=== PATIENT | female | born 1975 | race Caucasian/White ===

== ENCOUNTER 2016-11-05 13:28 | Observation (INO) | payer OTHER ==
[~2016-11-05] VITALS: Ht 157.5 cm; Wt 142.9 kg
[~2016-11-05 13:28] MED LIST: ALBUTEROL 3 ML3 ML INH; ALBUTEROL0.09 MG/A1 INH; ALBUTEROL0.63 MG/3 INH/SOL; ATORVASTATIN CA10 MG PO; AUGMENTIN 875875 MG PO; AZITHROMYCIN500 MG PO; FLOVENT0.11 MG/Ac INH; HYDROCHLOROTHIA PO; MEDROL DOSEPAK1 PAC PO; METHYLDOPA PO; MOBIC15 MG PO; PREDNISONE 10MG10 MG PO; SINGULAIR10 MG PO; SYMBICORT 160/41 PUF INH; VERAPAMIL HCL360 MG PO
--- NOTE | 2016-11-05 13:35 | NUR ---
C/O DIZZINESS, LIGHT HEADEDNESS X 1 WEEK, WORSE TODAY. SAW DR. MAYFIELD X 2 THIS WEEK FOR SXS. HAD B/W AND CHEST XRAY AND BILATERL US OF LEGS. DENIES CHEST PAIN OR SOB. HAS B/W RESULTS WITH HER.
--- NOTE | 2016-11-05 14:03 | ED AMS/SEIZURE/WEAK/DIZZY ---
See Addendum History of Present Illness General Chief Complaint: Dizziness Stated Complaint: SENT IN BY MD BOWEN Source: patient Exam Limitations: no limitations Vital Signs & Intake/Output Vital Signs & Intake/Output Vital Signs Date Time Temp Pulse Resp B/P B/P Pulse O2 O2 Flow FiO2 Mean Ox Delivery Rate 11/05 2014 97.3 83 18 169/84 100 Room Air 11/05 1744 96.8 85 20 150/90 98 Room Air 11/05 1535 99 11/05 1504 Room Air Room Air 11/05 1502 98.8 79 15 139/72 99 Room Air Room Air 11/05 1334 96.8 89 18 112/79 98 Room Air Allergies Coded Allergies: NO KNOWN ALLERGIES (12/27/14) Reconcile Medications Albuterol Sulfate (Proair Hfa) 90 MCG HFA.AER.AD 2 PUF INH AD PRN ASTHMA ( Reported) Albuterol Sulfate 2.5 MG/3 ML (0.083 %) VIAL.NEB 1 Vial INH/SUZANNE Q4P PRN DYSPNEA Amlodipine Besylate 10 MG TABLET 0.5 TAB PO DAILY BP (Reported) Atorvastatin Calcium 10 MG TABLET 1 TAB PO DAILY CHOLESTEROL (Reported) Losartan/Hydrochlorothiazide (Losartan-Hctz 100-25 MG Tab) 100 MG-25 MG TABLET 1 TAB PO DAILY BP (Reported) Methyldopa 500 MG TABLET 1 TAB PO BID BP (Reported) Montelukast Sodium 10 MG TABLET 1 TAB PO QPM ASTHMA (Reported) Prednisone 20 MG TABLET 2 TAB PO D ASTHMA Verapamil HCl 360 MG CAP24H.PEL 1 CAP PO DAILY BP (Reported) Triage Note: C/O DIZZINESS, LIGHT HEADEDNESS X 1 WEEK, WORE TODAY. SAW DR. MAYFIELD X 2 THIS WEEK FOR SXS. HAD B/W AND CHEST XRAY. HAS B/W REULTS WITH HER. Triage Nurses Notes Reviewed? yes Onset: Gradual Duration: week(s): (1) Timing: recent history Injury Environment: home Severity: moderate, severe Modifying Factors: Worsens With: movement. : No Patient currently breastfeeds: No HPI: This is a 40-year-old female with history of hypertension, morbid obesity presents to the ER complaining of worsening short of breath over the last week. She states that she was sent for an outpatient chest x-ray and [facility] Ultrasound report was given verbally which was negative the patient was awaiting chest x-ray was report results. She states that it is getting harder and harder to sleep flat and when she called her doctor today they decided to send her to the ER for evaluation. Patient is on multiple blood pressure medications. She denies any diabetes. History of asthma but states this does not feel like her asthma. She has not been coughing up any sputum. No fever or chills. Denies any chest pain but did complain of some back pain. The patient also has a history of pneumonia but he states this does not feel similar to her previous episode. (NGA REGAN MD) Past History Travel History Traveled to [place] past 21 day No Medical History Any Pertinent Medical History? see below for history Neurological: NONE EENT: allergies Cardiovascular: hypertension, hyperlipidemia Respiratory: asthma Gastrointestinal: NONE Hepatic: NONE Renal: NONE Musculoskeletal: NONE Psychiatric: NONE Endocrine: NONE Blood Disorders: NONE Cancer(s): NONE Other Medical Hx: obesity History of MRSA: No History of VRE: No History of CDIFF: No Influenza Vaccine: 01/08/15 Surgical History Surgical History: cholecystectomy, , RT FOOT SX Psychosocial History Who do you live with Family Services at Home None What is your primary language Citizen [place] Tobacco Use: Never used ETOH Use: denies use Family History Comment: MOTHER WITH DVT AFTER SURGERY Hx Contributory? No (NGA REGAN MD) Review of Systems Review of Systems Constitutional: Denies: chills, fever. EENTM: Reports: no symptoms. Respiratory: Reports: cough, short of breath. Denies: sputum production. Cardiovascular: Reports: palpitations. Denies: chest pain. GI: Denies: abdominal pain. Genitourinary: Reports: no symptoms. Musculoskeletal: Reports: no symptoms. Skin: Reports: no symptoms. Neurological/Psychological: Reports: anxiety. Hematologic/Endocrine: Denies: bruising, bleeding, polyuria, polydipsia. Immunologic/Allergic: Denies: splenectomy. All Other Systems: Reviewed and Negative (NGA REGAN MD) Physical Exam Physical Exam General Appearance: well developed/nourished, alert, awake, anxious, mild distress, obese Head: atraumatic, normal appearance Eyes: Bilateral: normal appearance, PERRL, EOMI. Ears, Nose, Throat: normal pharynx, normal ENT inspection, hearing grossly normal Neck: normal inspection, supple, full range of motion Respiratory: normal breath sounds, chest non-tender, no respiratory distress Cardiovascular: regular rate/rhythm Peripheral Pulses: 2+ radial (R), 2+ radial (L) Gastrointestinal: normal bowel sounds, soft, non-tender Extremities: normal range of motion Neurologic/Psych: no motor/sensory deficits, awake, alert, oriented x 3 Skin: intact, normal color, warm/dry Core Measures ACS in differential dx? Yes ASA ordered for poss ACS? No-ACS ruled out CVA/TIA Diagnosis: No Severe Sepsis Present: No Septic Shock Present: No (DORITA MART,NGA) Progress Differential Diagnosis: pneumonia, bronchitis, asthma, pulmonary embolus, ACS, anemia Plan of Care: Orders Procedure Date/time Status Heart Healthy Diet 11/[address] in observation 11/05 215 Active ED Holding Orders 11/05 2158 Active Vital Signs 11/05 215 Active Code Status 11/05 2158 Active TROPONIN LEVEL 11/05 1800 Complete EKG 11/05 1800 Active RT ED ORDERS 11/05 1508 Active Telemetry/Mixer Operator Vacuum Pan Salt 11/05 1418 Active TROPONIN LEVEL 11/05 1408 Complete HUMAN BETA HCG SCREEN 11/05 1408 Complete D-DIMER 11/05 1408 Complete COMPREHENSIVE METABOLIC PANEL 11/05 1408 Complete CBC WITHOUT DIFFERENTIAL 11/05 1408 Complete EKG 11/05 1349 Active Laboratory Tests 11/05/16 1747: Troponin I < 0.01 11/05/16 1415: Anion Gap 9, Estimated GFR > 60, BUN/Creatinine Ratio 14.3, Glucose 101 H, Calcium 9.6, Total Bilirubin 0.4, AST 23, ALT 37, Alkaline Phosphatase 56, Troponin I < 0.01, Total Protein 7.0, Albumin 4.0, Globulin 3.0, Albumin/ Globulin Ratio 1.3, Total Beta HCG NEGATIVE, D-Dimer High Sensitivty < 200, CBC w Diff NO MAN DIFF REQ, RBC 4.52, MCV 74.3 L, MCH 24.5 L, RDW 15.6 H, MPV 8.3 , Gran % 73.5, Lymphocytes % 16.9 L, Monocytes % 6.6, Eosinophils % 2.6, Basophils % 0.4, Absolute Granulocytes 8.0 H, Absolute Lymphocytes 1.8, Absolute Monocytes 0.7 H, Absolute Eosinophils 0.3, Absolute Basophils 0, PUBS MCHC 32.9 L Diagnostic Imaging: Viewed by Me: Radiology Read. Discussed w/RAD: Radiology Read. CXR Impression: PATIENT: LEONCIO PRICE PRESENT AGE: 40 PATIENT ACCOUNT NO: [id number] : 73 LOCATION: [facility] ORDERING PHYSICIAN: NGA REGAN MD SERVICE DATE: 11/05/16 EXAM TYPE: RAD - XRY-CHEST XRAY , PA AND LATERAL EXAMINATION: XR CHEST CLINICAL INFORMATION: Cough, shortness, dyspnea COMPARISON: 06/26/2015 TECHNIQUE: 2 views of the chest were obtained. FINDINGS: Heart size is normal. Mediastinal contours are normal. Lungs are clear without consolidation, effusion or pneumothorax. Visualized osseous structures appear intact. There are mild degenerative changes involving the thoracic spine. IMPRESSION: No acute cardiopulmonary process or interval change. DICTATED BY: DONTAE ALARCON MD DATE/TIME DICTATED:11/05/161536 MANAGER RN:LEELA DATE/TIME TRANSCRIBED:11/05/161536 CONFIDENTIAL, DO NOT COPY WITHOUT APPROPRIATE AUTHORIZATION. <Electronically signed in Other Vendor System> SIGNED BY: DONTAE ALARCON MD 11/05/16 1541 Initial ED EKG: NSR Repeat EKG: unchanged (NONSPECIFIC ST/T CHANGES) Hand-Off Endorsed To: LYNN ZACARIAS DO Endorsed Time: 1899 Pending: CT (NGA REGAN MD) Departure Departure Time of Disposition: 1849 Disposition: HOME OR SELF CARE Condition: Stable Clinical Impression Primary Impression: Dyspnea on exertion Referrals: FABBY MART,KYREE (PCP/Family) SHAKIRA MART PhD,MIGEL [place] Additional Instructions: TAKE THE PREDNISONE AND USE THE ALBUTEROL DIRECTED FOLLOW UP WITH THE EMERGENCY MANAGEMENT PROGRAM SPECIALIST LISTED FOR FURTHER TESTING RETURN IMMEDIATELY TO THE ER FOR ANY WORSENING SHORTNESS OF BREATH, OR FOR ANY CHEST PAIN Departure Forms: Customer Survey General Discharge Information Prescriptions: Current Visit Scripts Prednisone 2 TAB PO D #6 TAB Albuterol Sulfate 1 Vial INH/SUZANNE Q4P PRN DYSPNEA #1 BOX (NGA REGAN MD) Departure Comments 11/05/16 9:38 PM The patient was signed out to me by Dr. Regan. She is a 40-year-old female with a history of asthma. She was signed out to me by Dr. Regan for exertional hypoxia and dyspnea. Her CT scan of the chest with IV contrast to rule out PE was negative. She ambulated down the hallway and after a short distance her saturation dropped into the 80s. She is therefore being brought into the hospital for exertional hypoxia. Admission Note Documentation of Exam: Documentation of any treatments & extenuating circumstances including Concerns Regarding Discharge (functional status, medication knowledge or non-compliance, living conditions, etc.) that warrant an admission rather than observation: Observation Note Spoke With: CHANTAL MART,XAVIER Physician Advisor Notified: LYNN ZACARIAS DO Place Patient In: Non-ED OBS Care Area Rationale for Observation: My rational for observation is as follows [the patient is having exertional hypoxia, her saturations drop into the 80s with minimal activity. She is likely having reactive airway disease. She will receive nebulizers every 4-6 hours, IV steroids, reevaluation, monitoring of oxygen saturation, trial of ambulation after steroids, consider pulmonary consult, telemetry monitoring, consider inpatient echocardiogram, consider third troponin]. (LYNN ZACARIAS DO)
--- NOTE | 2016-11-05 14:21 | NUR ---
LABS DRAWN AND SENT LAV,SST,BLUE,PINK,BUNCH TOP SENT.
--- NOTE | 2016-11-05 14:24 | NUR ---
TRIAGE NOTE ACKNOWLEDGED AND RN CARE ASSUMED PT BOUGHT TO ROOM # 9 FOR EVALUATION. PT REPORTS LIGHTHEADEDNESS X 2 WEEKS, WORSE WITH EXERTION PT ALSO REPORTS SOME SHORTNESS OF BREATH, WORSE WITH EXERTION NO RESP DISTRESS OBSERVED, RESP EVEN/UNLABORED. PT EVALUATED BY DR KEVIN
[2016-11-05 14:32] LABS: ABSOLUTE BASOPHIL COUNT 0 /CUMM (0.0-0.2); ABSOLUTE EOSINOPHIL COUNT 0.3 /CUMM (0.0-0.7); ABSOLUTE LYMPH COUNT 1.8 /CUMM (1.2-3.4); ABSOLUTE MONOCYTE COUNT 0.7 /CUMM (0.10-0.60); BASOPHIL % 0.4 % (0.0-2.0); EOSINOPHIL % 2.6 % (0-5); GRANULOCYTE % 73.5 % (42.2-75.2); HEMATOCRIT 33.6 % (37-47); MEAN CORPUSCULAR HGB 24.5 PG (27.0-31.0); MEAN CORPUSCULAR HGB CONC 32.9 G/DL (33.0-37.0); MEAN CORPUSCULAR VOLUME 74.3 FL (81.0-99.0); MEAN PLATELET VOLUME 8.3 FL (7.4-10.4); PLATELET COUNT 387 /CUMM (130-400); RBC DISTRIBUTION WIDTH 15.6 % (11.5-14.5); RED BLOOD CELL CT 4.52 /CUMM (4.20-5.40); WHITE BLOOD CELL COUNT 10.8 /CUMM (4.8-10.8)
--- NOTE | 2016-11-05 15:15 | NUR ---
[facility]P THERAPY CALLED FOR TREATMENT.
--- NOTE | 2016-11-05 15:41 | RADIOLOGY REPORT ---
EXAMINATION: XR CHEST CLINICAL INFORMATION: Cough, shortness, dyspnea COMPARISON: 06/26/2015 TECHNIQUE: 2 views of the chest were obtained. FINDINGS: Heart size is normal. Mediastinal contours are normal. Lungs are clear without consolidation, effusion or pneumothorax. Visualized osseous structures appear intact. There are mild degenerative changes involving the thoracic spine. IMPRESSION: No acute cardiopulmonary process or interval change.
--- NOTE | 2016-11-05 16:01 | NUR ---
REGULAR DIET ORDERED
[2016-11-05] MEDS ORDERED: METHYLDOPA500 MG PO (16:48)
[2016-11-05] MEDS ORDERED: LOSARTAN-HCTZ1 EAC2 PO (16:48)
[2016-11-05] MEDS ORDERED: VERAPAMIL HCL360 M1 PO (16:49)
[2016-11-05] MEDS ORDERED: AMLODIPINE BESY10 M1 PO (16:49)
[2016-11-05] MEDS ORDERED: MONTELUKAST SOD10 M1 PO (16:49)
[2016-11-05] MEDS ORDERED: ATORVASTATIN CA10 M1 PO (16:49)
--- NOTE | 2016-11-05 16:49 | NUR ---
PT GIVEN MEAL TRAY
[2016-11-05] MEDS ORDERED: PROAIR HFA8.5 GM INH (16:50)
--- NOTE | 2016-11-05 17:48 | NUR ---
REPEAT TROP SENT
--- NOTE | 2016-11-05 17:55 | NUR ---
REPEAT EKG DONE
[2016-11-05] MEDS ORDERED: PREDNISONE20 M1 PO (18:51)
[2016-11-05] MEDS ORDERED: ALBUTEROL2.5 MG/3 M INH/SOL (18:51)
--- NOTE | 2016-11-05 19:02 | NUR ---
PT REEVALUATED BY MD DORITA. IV EST LAC #20 FOR CTA.
--- NOTE | 2016-11-05 19:34 | NUR ---
PT TO CAT SCAN
--- NOTE | 2016-11-05 19:38 | NUR ---
PT BACK FROM CAT SCAN
--- NOTE | 2016-11-05 19:45 | NUR ---
PT BACK FROM CAT SCAN PLACED BACK ON OPEN TENTER OPERATOR. NSR ON MONITOR. 02 SAT 98% ON RA PT RESTS. PT DENIES NEEDS AT THIS TIME. WILL CTM.
--- NOTE | 2016-11-05 20:25 | CT SCAN REPORT ---
EXAMINATION: CT ANGIOGRAM OF THE CHEST WITH AND WITHOUT CONTRAST (CT PULMONARY ANGIOGRAM FOR PE) CLINICAL INFORMATION: Reason for Study:
Presumptive Dx: R/O PE
Signs Symptoms: SOB WITH EXERTION, CXR NEG
COMPARISON: Chest x-ray 11/05/2016 TECHNIQUE: Prior to contrast administration, noncontrast localization images were obtained. Subsequently, multidetector volumetric imaging was performed from the thoracic inlet to below the diaphragms following the administration of 80 mL Omnipaque 350 intravenous contrast. No contrast reaction reported. Sagittal, coronal, and MIP oblique sagittal reformatted images were obtained on the CT workstation, uploaded to PACS, and reviewed. Total exam dose-length product 538 mGy-cm. FINDINGS: QUALITY OF STUDY/CONTRAST BOLUS: Suboptimal PULMONARY ARTERIES: No central or segmental pulmonary emboli. The subsegmental pulmonary arteries are not optimally opacified but no intraluminal filling defects identified. THORACIC AORTA: No aneurysm or dissection. LUNG: No focal consolidation, nodules or masses. PLEURA: No pleural effusion or pneumothorax. MEDIASTINUM: Normal heart size. No pericardial effusion. No hilar or mediastinal lymphadenopathy. No evidence of septal bowing or right heart strain. CHEST WALL/AXILLA: No axillary or internal mammary lymphadenopathy. OSSEOUS STRUCTURES: No acute or suspicious osseous abnormality. UPPER ABDOMEN: Unremarkable. No reflux of contrast into the hepatic veins to suggest elevated right heart pressures. IMPRESSION: There is no CT evidence for pulmonary embolism. Evaluation of the subsegmental pulmonary arteries is limited. The lungs are grossly clear with no acute findings. VTE: Negative study
--- NOTE | 2016-11-05 21:16 | NUR ---
PT AMBULATORY SAT DROPPED TO 89% AT END OF AMBULATION. MD ZACARIAS AWARE. PT REPORTS FEELING LIGHTHEADED TOWARDS END OF WALK. MD ZACARIAS AWARE OF THIS WELL.
--- NOTE | 2016-11-05 21:35 | NUR ---
PT AWAITING MD REEVAL.
--- NOTE | 2016-11-05 21:39 | NUR ---
MD ZACARIAS AT BEDSIDE TO REEVAL
--- NOTE | 2016-11-05 22:39 | History & Physical ---
[facility] 11/05/16 2239: General Information and HPI MD Statement: I have seen and personally examined LEONCIO PRICE and documented this H&P. The patient is a 40 year old F who presented with a patient stated chief complaint of worsening of sortness of breath.[]. Source of Information: patient Exam Limitations: no limitations History of Present Illness: 40 YO F non smoker PMH of HTN, morbid obesity, hyperlipidemia and asthma presented with worsening of shortness of breath for one week. She reoported that she was all right a weeks ago only had dry cough that's her baseline when she noticed shortness of breathing on exertion but its worsening now. Last night she had to woke up to catch the breath and today she couldn,t breath even while sitting and feeling light headed, she tried her rescue inhaler but it didn't work. She also reported that she saw her pcp twice in this week due to shortness of breath. Her out patient CXR was negative. She denies wheezing or infectious symptoms, sputum with cough, fever, ill contact, chest pain, palpitation, rash, tick bite, abdominal pain and dysuria only reporting that she frequently feels like she can't catch her breath and is fatigued. When she came in ED her saturation was 85% on room air. LABS: WBC 10.8 , Hb 11.1, Hct 33.6, Mag 1.7, trop <0.01,<0.01, D-dimer <200, Na 139, k 3.7, Cr 0.7, BUN 10 C-xray:No acute cardiopulmonary process or interval change. Chest CTA:There is no CT evidence for pulmonary embolism. Evaluation of the subsegmental pulmonary arteries is limited. The lungs are grossly clear with no acute findings. VTE: Negative study EXAMINATION: HEENT: PERRLA, EOMI, atraumatic, neck supple, obese lady Chest: CTA, B/L air entry normal, no wheezing CVS: S1+S2+0 , r/r/r ABD: NBS, SOFT, NON tender NEURO: Alert, oriented x3, cooperative SENSATION B/L inatct power; 5/5 x B/LX 4 CN 3-12 INTACT Allergies/Medications Home Med list Albuterol Sulfate (Proair Hfa) 90 MCG HFA.AER.AD 2 PUF INH AD PRN ASTHMA ( Reported) Amlodipine Besylate 10 MG TABLET 0.5 TAB PO DAILY BP (Reported) Atorvastatin Calcium 10 MG TABLET 1 TAB PO DAILY CHOLESTEROL (Reported) Azithromycin (Zithromax) 250 MG TABLET 1 DP PO DAILY asthma exacerbation take one daily for 3 days Budesonide/Formoterol Fumarate (Symbicort 160-4.5 Mcg Inhaler) 160 MCG-4.5 MCG/ ACTUATION HFA.AER.AD 2 PUF INH BID copd Losartan/Hydrochlorothiazide (Losartan-Hctz 100-25 MG Tab) 100 MG-25 MG TABLET 1 TAB PO DAILY BP (Reported) Methyldopa 500 MG TABLET 1 TAB PO BID BP (Reported) Montelukast Sodium 10 MG TABLET 1 TAB PO QPM ASTHMA (Reported) Prednisone 10 MG TABLET 1 TAB PO SEE ADMIN CRITERIA copd take 6 tablets (60mg) on 11/08/16 take 5 tablets (50mg) on 11/09/16 take 4 tablets (40mg) on 11/10/16 take 3 tablets (30mg) on 11/11/16 take 2 tablets (20mg) on 11/12/16 take 1 tablet (10mg) on 11/13/16 THEN STOP Verapamil HCl 360 MG CAP24H.PEL 1 CAP PO DAILY BP (Reported) Past History Travel History Traveled to [place] past 21 day No Medical History Neurological: NONE EENT: allergies Cardiovascular: hypertension, hyperlipidemia Respiratory: asthma Gastrointestinal: NONE Hepatic: NONE Renal: NONE Musculoskeletal: NONE Psychiatric: NONE Endocrine: NONE Blood Disorders: NONE Cancer(s): NONE Other Medical Hx: obesity History of MRSA: No History of VRE: No History of CDIFF: No Influenza Vaccine: 01/08/15 Surgical History Surgical History: cholecystectomy, , RT FOOT SX Past Family/Social History Psychosocial History Who Do You Live With? spouse Services at Home: None Primary Language: Slovenian ETOH Use: denies use Functional Ability ADLs Independent: dressing, eating, toileting, bathing. Ambulation: independent IADLs Independent: shopping, housework, finances, food prep, telephone, transportation , medication admin. Review of Systems Review of Systems Constitutional: Reports: chills. EENTM: Reports: no symptoms. Cardiovascular: Reports: palpitations. Respiratory: Reports: cough, short of breath. GI: Reports: no symptoms. Genitourinary: Reports: no symptoms. Musculoskeletal: Reports: no symptoms. Skin: Reports: no symptoms. Neurological/Psychological: Reports: no symptoms. Hematologic/Endocrine: Reports: no symptoms. Immunologic/Allergic: Reports: no symptoms. Exam & Diagnostic Data Last 24 Hrs of Vital Signs/I&O Vital Signs Date Time Temp Pulse Resp B/P B/P Pulse O2 O2 Flow FiO2 Mean Ox Delivery Rate 11/05 2232 96.5 79 16 170/92 100 Room Air 11/05 2014 97.3 83 18 169/84 100 Room Air 11/05 1744 96.8 85 20 150/90 98 Room Air 11/05 1535 99 11/05 1504 Room Air Room Air 11/05 1502 98.8 79 15 139/72 99 Room Air Room Air 11/05 1334 96.8 89 18 112/79 98 Room Air Intake & Output 11/06 0800 11/06 0000 11/05 1600 Intake Total 0 Output Total Balance 0 Intake, Oral 0 Patient 315 lb 315 lb Weight Weight Reported by Patient Measurement Method Physical Exam General Appearance Alert, Oriented X3, Cooperative, No Acute Distress Skin No Rashes Skin Temp/Moisture Exam: Warm/Dry HEENT Atraumatic, PERRLA, EOMI Neck Supple Cardiovascular Regular Rate, Normal S1, Normal S2 Lungs Clear to Auscultation, Normal Air Movement Abdomen Normal Bowel Sounds, Soft, No Tenderness Neurological Normal Speech, Strength at 5/5 X4 Ext, Normal Tone, Sensation Intact, Cranial Nerves 3-12 NL Extremities No Clubbing, No Cyanosis Vascular Normal Pulses Assessment/Plan Assessment: 40 YO F non smoker PMH of HTN, morbid obesity, hyperlipidemia and asthma presented with worsening of shortness of breath for one week. She has H/O base line dry cough for long time. We will observe the patient in telemetry for: Asthma exacerbation/ pickwickian synd/ACS: continue home meds Azithromycin 250mg EKG and trop prednisone po pulmo consult HTN: continue losartan and hydrochlorothiazide continue methyldopa continue verapamil continue amlodipine low salt diet Pneumonia/PE: Ruled out of CTA DVT PROPHYLAXIS: mechanical and heparin CODE STATUS; Full code As Ranked By This Provider Problem List: 1. Asthma 2. HTN (hypertension) 3. Hyperlipidemia 4. Dyspnea Core Measures/Miscellaneous Acute Coronary Syndrome ACS Diagnosis: No Cerebrovascular Accident CVA/TIA Diagnosis: No Congestive Heart Failure CHF Diagnosis: No VTE (View Protocol) VTE Risk Factors: Age > 40, Obesity [facility] prophylaxis d/t: No contraindications No VTE Pharm Prophylaxis d/t: No contraindications VTE Diagnosis: No VTE Type: NONE VTE Confirmed by (Test): NONE Sepsis (View Protocol) Severe Sepsis Present: No Septic Shock Septic Shock Present: No Miscellaneous Documentation Primary Care Physician: FABBY MART,KYREE Patient sees these Specialists pulmo Level of Patient Care: Telemetry Consults Needed: Consulting Specialty: Pulmonary Disease XAVIER CORNEJO MD 11/06/16 0035: General Information and HPI Allergies/Medications Allergies: Coded Allergies: almond (Intermediate, ABDOMINAL PAIN 11/05/16) banana (Intermediate, ABDOMINAL PAIN 11/05/16) Attending MD Review Statement Attending Statement Attending MD Statement: examined this patient, discuss w/resident/PA/CERTIFIED MIDWIFE, agreed w/resident/PA/CERTIFIED MIDWIFE, reviewed EMR data (avail) Attending Assessment/Plan: 40F PMH HTN, HLD, morbid obesity, asthma presenting with 1 week of worsening shortness of breath. Denies wheezing or infectious symptoms, only reporting that she frequently feels like she can't catch her breath and is fatigued. Had outpatient CXR which was normal. Physical exam is normal without wheezing or rhonchi. CTA chest was done which shows no evidence of PE and normal lung dove. Patient was ambulated and continually desaturated to 80% on room air with ambulation, becoming short of breath in the process. Suspect asthma exacerbation with contribution of obesity hypoventilation syndrome. Plan - Observation status in telemetry (possible cardiac cause for dyspnea, will monitor overnight, if hypoxia resolves tomorrow can likely be discharged) - Solumedrol 125mg and then 40mg BID - TRC/nebulizer treatments - Pulmonary consult - Incentive spirometry - Continue home medications - Repeat troponin and EKG - Obtain echocardiogram - DVT PPx MELECIO DWYER 11/06/16 0053: Core Measures/Miscellaneous Miscellaneous Documentation Attending Case Discussed With: XAVIER CORNEJO MD Resident Review Statement Resident Statement: examined this patient, discussed with qa intern, agreed with qa intern, amended to note Other Findings: 30-year-old lady with past medical history of obesity, asthma, hypertension on multiple medications came to the hospital with chief complaint of shortness of breath and not feeling well for 5 days. Patient reported since 5 days ago she experienced shortness of breath on exertion and also experienced shortness of breath while lying in the back at least times which last time was yesterday night which was very severe and patient was gasping for air. Patient denies any chest pain, nausea, vomiting, abdominal pain, fevers,wheezing. Patient reports of dry cough which is her baseline and chills for couple of days but no recent sick contacts or travel. Patient was supposed to follow Dr. Clifford however she did not follow-up for couple of months. Patient also uses her inhaler multiple times in these areas and also saw her PCP 2 times however she is still feeling shortness of breath and also lightheadedness especially while walking. Upon arrival patient vital signs were stable however upon walking patient was desaturating to 85% on room air even after getting the nebulizer treatment. Alert and oriented 3, OBESE HEENT Atraumatic Neck Supple, No JVD, No thryomegaly Cardiovascular Regular Rate, Normal S1, Normal S2 Lungs Clear to Auscultation, Normal Air Movement Abdomen Normal Bowel Sounds, Soft, No Tenderness, No Hepatospenomegaly, No Masses Neurological Normal Gait, Normal Speech, Strength at 5/5 X4 Ext, Sensation Intact Extremities No Clubbing, No Cyanosis, No Edema,Normal Pulses Labs were notable for d-dimer less than 200, microcytic anemia, hemoglobin 11.1, MCV 74.3, CTA rule out any PE or active pneumonia Assessment and plan #Shortness of breath -possibly ashtma exacerebration -Rule out ACS with EKG and troponin 3 -pulm consult in the morning -Give 125 Solu-Medrol now and continue Solu medrol 40 mg in BID -TRC nebs -Azithromycin 500 now and continue for 4 more days 250 mg daily -echocardiogram #Hypertension -Continue home medication of losartan, hydrochlorothiazide, methyldopa,verapamil -Watch for blood pressure #microcytic anemia -Watch for bleeding #Full code, DVT prophylaxis and mechanical & heparin, heart health diet, Tylenol for pain SIMÓN DESOUZA MD 11/06/16 2310: Attending MD Review Statement Attending Statement Attending Assessment/Plan: The patient was seen and discussed with house staff. Apprciate Pulmonary input. Agree with the plan of care as outlined. The patient desaturated to 80% on RA in ED and thus meets criteria for Acute Hypoxic Respiratory Failure secondary to asthma.
--- NOTE | 2016-11-05 22:43 | NUR ---
HOUSE STAFF HERE TO [facility].
--- NOTE | 2016-11-06 00:33 | NUR ---
BLOOD DRAWN AND SENT TO LAB SST
--- NOTE | 2016-11-06 02:10 | NUR ---
PT SLEEPING, 02 SAT 97% ON RA. REMAINS NSR.
--- NOTE | 2016-11-06 03:55 | NUR ---
PT CONTINUES TO SLEEP. NSR ON MONITOR. 02 SAT WHILE SLEEPING 97% ON RA.
--- NOTE | 2016-11-06 05:42 | NUR ---
PT AWAKE, AMBULATORY TO BATHROOM, STEADY GAIT NO RESP DISTRESS NOTED.
[2016-11-06 06:04] LABS: ABSOLUTE BASOPHIL COUNT 0 /CUMM (0.0-0.2); ABSOLUTE EOSINOPHIL COUNT 0.2 /CUMM (0.0-0.7); ABSOLUTE GRANULOCYTE CT 12.9 /CUMM (1.4-6.5); ABSOLUTE LYMPH COUNT 0.9 /CUMM (1.2-3.4); ABSOLUTE MONOCYTE COUNT 0.1 /CUMM (0.10-0.60); BASOPHIL % 0.1 % (0.0-2.0); EOSINOPHIL % 1.5 % (0-5); GRANULOCYTE % 91.4 % (42.2-75.2); MEAN CORPUSCULAR HGB 24.2 PG (27.0-31.0); MEAN CORPUSCULAR HGB CONC 32.4 G/DL (33.0-37.0); MEAN PLATELET VOLUME 8.1 FL (7.4-10.4); PLATELET COUNT 436 /CUMM (130-400); RBC DISTRIBUTION WIDTH 15.7 % (11.5-14.5); RED BLOOD CELL CT 4.98 /CUMM (4.20-5.40)
[2016-11-06 06:13] LABS: HEMATOCRIT 37.3 % (37-47); MEAN CORPUSCULAR VOLUME 74.8 FL (81.0-99.0)
[2016-11-06 06:36] LABS: WHITE BLOOD CELL COUNT 14.1 /CUMM (4.8-10.8)
--- NOTE | 2016-11-06 07:30 | NUR ---
ASSUMED CARE OF PT, PT RESTING QUIETLY ON HOSPITAL BED, ALERT AND ORIENTED, DENIES ANY NEEDS AT THIS TIME LUNGS CTA, 02 SAT ON RA 99%, PT REPORTING WORSENING SOB ON ANY AMBULATION, ABD SOFT AND NONTENDER. PT INFORMED OF POC, BREAKFAT TRAY ORDERED PER REQUEST.
--- NOTE | 2016-11-06 09:31 | NUR ---
PT ADMITTED TO ROOM 189-1
--- NOTE | 2016-11-06 09:50 | NUR ---
DR DESOUZA TO BEDSIDE TO EVAL, PT REQUESTING NEB TX, DR DESOUZA STATING HE WILL ORDER IT
--- NOTE | 2016-11-06 10:04 | NUR ---
REPORT TO BREANNE CASTELLANOS
--- NOTE | 2016-11-06 10:15 | NUR ---
PT REPORTING SHE TAKES VERAPAMIL AT NIGHT
--- NOTE | 2016-11-06 10:40 | NUR ---
PT TO FLOOR VIA HOPSITAL BED ON MONITOR WITH THIS RN AND TRANSPORT. ALL PAPERWORK AND BELONGINGS SENT. CLINICAL STATUS UNCHANGED.
--- NOTE | 2016-11-06 10:55 | Cons- Pulmonary ---
General Information and HPI Consulting Request Date of Consult: 11/06/16 Requested By: edilson Reason for Consult: Shortness of breath History of Present Illness: Patient is 40-year-old woman carries the diagnosis of asthma on Proventil air alone has had complaints of lightheadedness headache and shortness of breath over the past week. She's been using her Proventil more frequently. She has dyspnea on exertion. She has no chest pain productive cough hemoptysis fevers chills night sweats. In the emergency room oxygen saturation saturations have been normal. CTA showed no evidence of pulmonary emboli or parenchymal abnormalities. Patient is comfortable on room air with normal oxygen saturation Allergies/Medications Allergies: Coded Allergies: almond (Intermediate, ABDOMINAL PAIN 11/05/16) banana (Intermediate, ABDOMINAL PAIN 11/05/16) Home Med List: Albuterol Sulfate (Proair Hfa) 90 MCG HFA.AER.AD 2 PUF INH AD PRN ASTHMA ( Reported) Albuterol Sulfate 2.5 MG/3 ML (0.083 %) VIAL.NEB 1 Vial INH/SUZANNE Q4P PRN DYSPNEA Amlodipine Besylate 10 MG TABLET 0.5 TAB PO DAILY BP (Reported) Atorvastatin Calcium 10 MG TABLET 1 TAB PO DAILY CHOLESTEROL (Reported) Losartan/Hydrochlorothiazide (Losartan-Hctz 100-25 MG Tab) 100 MG-25 MG TABLET 1 TAB PO DAILY BP (Reported) Methyldopa 500 MG TABLET 1 TAB PO BID BP (Reported) Montelukast Sodium 10 MG TABLET 1 TAB PO QPM ASTHMA (Reported) Verapamil HCl 360 MG CAP24H.PEL 1 CAP PO DAILY BP (Reported) Review of Systems Review of Systems Constitutional: Denies: chills, fever. Cardiovascular: Reports: chest pain, edema. Respiratory: Reports: cough, short of breath. Denies: hemoptysis, sputum production, wheezing. GI: Denies: abdominal pain, diarrhea, melena (reflux). Past History Travel History Traveled to [place] past 21 day No Medical History Neurological: NONE EENT: allergies Cardiovascular: hypertension, hyperlipidemia Respiratory: asthma Gastrointestinal: NONE Hepatic: NONE Renal: NONE Musculoskeletal: NONE Psychiatric: NONE Endocrine: NONE Blood Disorders: NONE Cancer(s): NONE Other Medical Hx: obesity Surgical History Surgical History: cholecystectomy, , RT FOOT SX Psychosocial History Who Do You Live With? spouse Services at Home: None Primary Language: Estonian Smoking Status: Never Smoked ETOH Use: denies use Functional Ability ADLs Independent: dressing, eating, toileting, bathing. Ambulation: independent IADLs Independent: shopping, housework, finances, food prep, telephone, transportation , medication admin. Exam & Diagnostic Data Last 24 Hrs of Vital Signs/I&O Vital Signs Date Time Temp Pulse Resp B/P B/P Pulse O2 O2 Flow FiO2 Mean Ox Delivery Rate 11/06 1019 133/67 11/06 1015 100 133/67 11/06 1015 100 133/67 11/06 1013 98.0 100 18 133/67 99 Room Air 11/06 0554 96.8 93 18 106/55 98 Room Air 11/05 2232 96.5 79 16 170/92 100 Room Air 11/05 2014 97.3 83 18 169/84 100 Room Air 11/05 1744 96.8 85 20 150/90 98 Room Air 11/05 1535 99 11/05 1504 Room Air Room Air 11/05 1502 98.8 79 15 139/72 99 Room Air Room Air 11/05 1334 96.8 89 18 112/79 98 Room Air Intake & Output 11/06 1600 11/06 0800 11/06 0000 Intake Total Output Total Balance Patient 315 lb Weight Room oximetry 99% HNT exam shows no stridor exam for chest shows good air entry and no wheezes cardiac exam shows regular S1 and S2 abdomen is soft nontender extremities without calf tenderness or edema Last 48 Hrs of Labs/Femi: Laboratory Tests 11/06/16 0552: Anion Gap 15, Estimated GFR > 60, BUN/Creatinine Ratio 13.3, CBC w Diff NO MAN DIFF REQ, RBC 4.98, MCV 74.8 L, MCH 24.2 L, RDW 15.7 H, MPV 8.1, Gran % 91.4 H, Lymphocytes % 6.4 L, Monocytes % 0.6 L, Eosinophils % 1.5, Basophils % 0.1, Absolute Granulocytes 12.9 H, Absolute Lymphocytes 0.9 L, Absolute Monocytes 0.1 L, Absolute Eosinophils 0.2, Absolute Basophils 0, PUBS MCHC 32.4 L 11/06/16 0032: Magnesium 1.7, Troponin I < 0.01 11/05/16 1747: Troponin I < 0.01, Dto-U-Clqtyjexedi Pept 76.1 11/05/16 1415: Anion Gap 9, Estimated GFR > 60, BUN/Creatinine Ratio 14.3, Glucose 101 H, Calcium 9.6, Total Bilirubin 0.4, AST 23, ALT 37, Alkaline Phosphatase 56, Troponin I < 0.01, Total Protein 7.0, Albumin 4.0, Globulin 3.0, Albumin/ Globulin Ratio 1.3, Total Beta HCG NEGATIVE, D-Dimer High Sensitivty < 200, CBC w Diff NO MAN DIFF REQ, RBC 4.52, MCV 74.3 L, MCH 24.5 L, RDW 15.6 H, MPV 8.3 , Gran % 73.5, Lymphocytes % 16.9 L, Monocytes % 6.6, Eosinophils % 2.6, Basophils % 0.4, Absolute Granulocytes 8.0 H, Absolute Lymphocytes 1.8, Absolute Monocytes 0.7 H, Absolute Eosinophils 0.3, Absolute Basophils 0, PUBS MCHC 32.9 L Assessment/Plan Impression/Plan: 40-year-old woman with evidence of mild obstructive lung disease per mellitus more hours with a reversible component on prior pulmonary function testing admitting with complaints of dizziness lightheadedness dyspnea on exertion. Her evaluation to date is negative with normal oxygen saturations normal exam CTA and chest x-ray. Whether she had an episode of bronchospasm is unclear what dose he appears improved Recommendations: Rapidly taper IV steroids. Assess saturations with ambulation. Patient should have repeat pulmonary function testing. Patient is at risk for obstructive sleep apnea with history of snoring obesity and hypertension Consult Acknowledgment - Thank you for your consult request.
[2016-11-06 11:06] VITALS: BP 128/72
--- NOTE | 2016-11-06 13:25 | PN-Observation ---
IZABELA MARTPEPE 11/06/16 1312: Assessment/Plan Assessment: 40 YO F non smoker PMH of HTN, morbid obesity, hyperlipidemia and asthma presented with worsening of shortness of breath for one week. She has H/O base line dry cough for long time. Denies wheezing or infectious symptoms, only reporting that she frequently feels like she can't catch her breath and is fatigued. Had outpatient CXR which was normal. Physical exam is normal without wheezing or rhonchi. CTA chest was done which shows no evidence of PE and normal lung dove. Patient was ambulated and continually desaturated to 80% on room air with ambulation, becoming short of breath in the process. Suspect asthma exacerbation with contribution of obesity hypoventilation syndrome. We will observe the patient in telemetry for: Asthma exacerbation/ pickwickian synd/ACS HTN Pneumonia/PE Problem List: 1. Acute respiratory failure with hypoxia 2. Asthma 3. HTN (hypertension) 4. Hyperlipidemia Plan: #Shortness of breath -possibly ashtma exacerebration -Rule out ACS with EKG and troponin 3 -pulm consult with Dr. Daugherty: Rapidly taper IV steroids. Assess saturations with ambulation. Patient should have repeat pulmonary function testing. Patient is at risk for obstructive sleep apnea with history of snoring obesity and hypertension -Give 125 Solu-Medrol now and continue Solu medrol 40 mg in BID -TRC nebs -Azithromycin 500 now and continue for 4 more days 250 mg daily -echocardiogram #Hypertension -Continue home medication of losartan, hydrochlorothiazide, methyldopa,verapamil -Watch for blood pressure #microcytic anemia, now 12.1, was 11.1 -Watch for bleeding #Full code, DVT prophylaxis and mechanical & heparin, heart health diet, Tylenol for pain Consulting Request: Consulting Specialty: Pulmonary Disease Subjective Follow-up For: Asthma exacerbation Complaints: shortness of breath Subjective: Patient is examined in bed. She states that she feels the same as when she came in here and that her shortness of breath is constant. She notes that it is constant and not associated with moving. She notes it more like a chest tightness. She says that when she walks a couple of the eye gets worse acutely. Review of Systems Constitutional: Reports: no symptoms. Respiratory: Reports: short of breath. Gastrointestinal: Reports: no symptoms. Objective Last 24 Hrs of Vital Signs/I&O Vital Signs Date Time Temp Pulse Resp B/P B/P Pulse O2 O2 Flow FiO2 Mean Ox Delivery Rate 11/06 1106 98.9 95 18 128/72 95 Room Air 11/06 1019 133/67 11/06 1015 100 133/67 11/06 1015 100 133/67 11/06 1013 98.0 100 18 133/67 99 Room Air 11/06 0554 96.8 93 18 106/55 98 Room Air 11/05 2232 96.5 79 16 170/92 100 Room Air 11/05 2015 97.3 83 18 169/84 100 Room Air 11/05 1744 96.8 85 20 150/90 98 Room Air 11/05 1535 99 11/05 1504 Room Air Room Air 11/05 1502 98.8 79 15 139/72 99 Room Air Room Air 11/05 1334 96.8 89 18 112/79 98 Room Air Intake & Output 11/06 1600 11/06 0800 11/06 0000 Intake Total Output Total Balance Patient 315 lb Weight Physical Exam General Appearance: Alert, Oriented X3, Cooperative, No Acute Distress Cardiovascular: Regular Rate, Normal S1, Normal S2, No Murmurs, Gallops, Rubs Lungs: Clear to Auscultation Abdomen: Normal Bowel Sounds, Soft, No Tenderness SIMÓN DESOUZA MD 11/06/16 2312: Attending MD Review Statement Attending Statement Attending MD Statement: examined this patient, discuss w/resident/PA/ASSOCIATE QUALITY ENGINEER, agreed w/resident/PA/ASSOCIATE QUALITY ENGINEER, reviewed EMR data (avail), discussed w/nursing, reviewed images, amended to note Attending Assessment/Plan: The patient was seen and discussed with house staff. Appreciate Pulmonary input. Agree with the plan of care as outlined.
[2016-11-06 15:01] VITALS: BP 150/70
--- NOTE | 2016-11-06 20:38 | ECHOCARDIOGRAM REPORT ---
LEONCIO PRICE Age: 40 : 1975 Gender: F Exam Date: 11/06/2016 13:58 Exam Location: [address] Ht (in): 62 Wt (lb): 315 BSA: 2.60 BP: 128 / 72 Ordering Physician: MELECIO DWYER MD Referring Physician: MELECIO DWYER MD Technologist: Jenn Zamudio [facility] Room Number: 189-01 Indications: SHORTNESS OF BREATH Rhythm: Sinus Technical Quality: fair FINDINGS Left Ventricle Normal global left ventricular size, wall thickness, systolic function with no obvious regional wall motion abnormalities. Normal left ventricular ejection fraction estimated at 60-65%. Right Ventricle Normal right ventricular size and function. Right Atrium Normal right atrial size. Left Atrium Mild left atrial dilatation. Mitral Valve Mitral valve not well visualized, grossly normal. Trace mitral regurgitation. Aortic Valve Aortic valve not well visualized, grossly normal. Tricuspid Valve Tricuspid valve is normal in structure and function. Trace tricuspid regurgitation. Pulmonic Valve Pulmonic valve not well visualized, grossly normal. Pericardium Minimal pericardial effusion (normal variant). Great Vessels Normal size aortic root. CONCLUSIONS Normal left and right ventricular systolic function. Trace to small pericardial effusion. No significant valvular abnormalities noted. Michael Montana M.D. (Electronically Signed) Final Date: 06 November 2016 20:37 MEASUREMENTS (Male / Female) Normal Values 2D ECHO LV Diastolic Diameter PLAX 4.1 cm 4.2 - 5.9 / 3.9 - 5.3 cm LV Systolic Diameter PLAX 2.5 cm 2.1 - 4.0 cm LV Fractional Shortening PLAX 39.0 % 25 - 46 % LV Ejection Fraction 2D Teich 69.9 % IVS Diastolic Thickness 0.9 cm LVPW Diastolic Thickness 1.1 cm LV Relative Wall Thickness 0.5 RV Internal Dim ED PLAX 1.8 cm 1.9 - 3.8 cm LVOT Diameter 2.1 cm Aortic Root Diameter 2.9 cm LA Systolic Diameter LX 4.5 cm 3.0 - 4.0 / 2.7 - 3.8 cm LA Volume 36.0 cm 18 - 58 / 22 - 52 cm Ascending Aorta Diameter 3.1 cm DOPPLER AV Peak Velocity 155.0 cm/s AV Peak Gradient 9.6 mmHg AV Mean Velocity 111.0 cm/s AV Mean Gradient 6.0 mmHg AV Velocity Time Integral 29.3 cm LVOT Peak Velocity 128.0 cm/s LVOT Peak Gradient 6.6 mmHg LVOT Mean Velocity 93.8 cm/s LVOT Mean Gradient 4.0 mmHg LVOT Velocity Time Integral 24.8 cm LVOT Stroke Volume 85.9 cm AV Area Cont Eq vti 2.9 cm AV Area Cont Eq pk 2.9 cm MV Peak Velocity 63.0 cm/s MV Peak Gradient 1.6 mmHg MV Mean Velocity 40.6 cm/s MV Mean Gradient 1.0 mmHg Mitral E Point Velocity 83.4 cm/s Mitral A Point Velocity 104.0 cm/s Mitral E to A Ratio 0.8 MV PHT Velocity 66.9 cm/s MV Deceleration Powell 147.0 cm/s MV Pressure Half Time 136.5 ms MV Area PHT 1.6 cm MV Deceleration Time 201.0 ms PV Peak Velocity 141.0 cm/s PV Peak Gradient 8.0 mmHg PV Mean Velocity 94.6 cm/s PV Mean Gradient 4.0 mmHg PV Velocity Time Integral 22.5 cm LV E' Lateral Velocity 9.4 cm/s Mitral E to LV E' Lateral Ratio 8.9 LV E' Septal Velocity 21.4 cm/s Mitral E to LV E' Septal Ratio 3.9
[2016-11-06 23:11] VITALS: BP 116/60
[2016-11-07 07:08] VITALS: BP 130/60
--- NOTE | 2016-11-07 09:48 | PN- Pulmonary ---
Subjective HPI/Critical Care Issues: pt seen and examined. comfortable. no events. clear lungs. feels better. no wheezing, normal breath sounds. Objective Current Medications: Current Medications Sig/[place] Start time Last Medication Dose Route Stop Time Status Admin Acetaminophen 650 MG Q6P PRN 11/05 2230 AC PO Albuterol Sulfate 3 ML BID 11/06 2200 AC 11/06 INH 1930 Amlodipine Besylate 5 MG DAILY 11/06 1000 AC 11/06 PO 1015 Atorvastatin Calcium 10 MG 1700 11/06 1700 AC 11/06 PO 1617 Azithromycin 250 MG DAILY 11/06 1000 AC 11/06 PO 11/09 1001 1015 Calcium Carbonate 500 MG ONCE ONE 11/07 06 DC 11/07 PO 11/07 06 0634 Enoxaparin Sodium 40 MG DAILY 11/06 1000 AC 11/06 SC 1015 Hydrochlorothiazide 25 MG DAILY 11/06 1000 AC 11/06 PO 1015 Losartan Potassium 100 MG DAILY 11/06 1000 AC 11/06 PO 1015 Magnesium Oxide 400 MG DAILY 11/06 1000 DC 11/06 PO 11/06 1001 1015 Methyldopa 500 MG BID 11/05 2327 AC 11/06 PO 2055 Methylprednisolone 40 MG BID 11/06 1000 AC 11/06 IV 2055 Montelukast Sodium 10 MG QPM 11/06 2200 AC 11/06 PO 2055 Verapamil HCl 360 MG AT BEDTIME 11/07 220 AC PO Verapamil HCl 360 MG DAILY 11/06 1000 DC PO Vital Signs & I&O Last 24 Hrs of Vitals and I&O: Vital Signs Date Time Temp Pulse Resp B/P B/P Pulse O2 O2 Flow FiO2 Mean Ox Delivery Rate 11/07 0708 98.3 75 18 130/60 95 11/06 2311 98.9 103 18 116/60 93 Room Air 11/06 1930 94 Room Air 11/06 1501 99.2 108 18 150/70 96 Room Air 11/06 1450 Room Air 11/06 1449 97 Room Air 11/06 1106 98.9 95 18 128/72 95 Room Air 11/06 1019 133/67 11/06 1015 100 133/67 11/06 1015 100 133/67 11/06 1013 98.0 100 18 133/67 99 Room Air Intake & Output 11/07 1600 11/07 0800 11/07 0000 Intake Total 120 770 Output Total Balance 120 770 Intake, IV 20 Intake, Oral 120 750 Exam Other Physical Findings: gen awake and alert heent ncat cvs s1, s2 lungs ctab abd soft bs+ obese ext no edema Impression/Plan Impression/Plan Impression/Plan: Impression 40 year old woman * bronchospasm, underlying reactive airways/asthma * possible underlying yolette that needs to be ruled out Plan -f/u with myself -begin symbicort 160/4.5 2 puffs BID with rinsing of the mouth -taper steroids -ensure proair at home (do not use proventil - does not have a counter) -pfts and sleep testing as outpatient -okay for dc from pulmonary perspective DVT prophylaxis while inpatient
[2016-11-07 10:00] VITALS: BP 130/60
--- NOTE | 2016-11-07 11:04 | Patient Discharge Instructions ---
Discharge Instructions General Discharge Information You were seen/treated for: Dyspnea (shortness of breath) You had these procedures: echocardiogram peak expiratory flow Special Instructions: 1. please follow up with your PCP in one week 2. please follow up with Dr. Clifford [employer] [employer] in one week. Diet Continue normal diet: Yes Recommended Diet: Heart Healthy Activity Full Activity/No Limits: Yes Acute Coronary Syndrome Inclusion Criteria At DC or during hospital stay patient has or had the following: ACS DIAGNOSIS No Discharge Core Measures Meds if any: Prescribed or Continued at Discharge Meds if any: NOT Prescribed or Continued at Discharge Congestive Heart Failure Inclusion Criteria At DC or during hospital stay patient has or had the following: CHF DIAGNOSIS No Discharge Core Measures Meds if any: Prescribed or Continued at Discharge Meds if any: NOT Prescribed or Continued at Discharge Cerebrovascular accident Inclusion Criteria At DC or during hospital stay patient has or had the following: CVA/TIA Diagnosis No Discharge Core Measures Meds if any: Prescribed or Continued at Discharge Meds if any: NOT Prescribed or Continued at Discharge Venous thromboembolism Inclusion Criteria VTE Diagnosis No VTE Type NONE VTE Confirmed by (Test) NONE Discharge Core Measures - Per Current guidelines, there needs to be overlap - treatment for the first 5 days of Warfarin therapy. - If discharged on Warfarin prior to 5 days of - overlap therapy, the patient will need to be - assessed for post discharge needs including - *Post discharge parental anticoagulation - *Warfarin and/or parental anticoagulation education - *Follow up date to check INR post discharge At least 5 days overlap therapy as Inpatient No Meds if any: Prescribed or Continued at Discharge Note: Overlap Therapy is Warfarin and Anticoagulant Meds if any: NOT Prescribed or Continued at Discharge
[2016-11-07] MEDS ORDERED: SYMBICORT 16010.2 GM INH (11:15)
[2016-11-07] MEDS ORDERED: ZITHROMAX250 M2 PO (11:15)
[2016-11-07] MEDS ORDERED: PREDNISONE10 M2 PO ×2 (11:15→11:16)
--- NOTE | 2016-11-07 11:33 | PN-Observation ---
IZABELA MART,PEPE 11/07/16 1123: Observation Note Observation Note _ I have personally examined COULEONCIO CHADWICK. her disposition is uncertain at this time. Before a determination can be made, she requires continued observation for the following reasons [dyspnea]. Assessment/Plan Assessment: 40 YO F non smoker PMH of HTN, morbid obesity, hyperlipidemia and asthma presented with worsening of shortness of breath for one week. She has H/O base line dry cough for long time. Denies wheezing or infectious symptoms, only reporting that she frequently feels like she can't catch her breath and is fatigued. Had outpatient CXR which was normal. Physical exam is normal without wheezing or rhonchi. CTA chest was done which shows no evidence of PE and normal lung dove. Patient was ambulated and continually desaturated to 80% on room air with ambulation, becoming short of breath in the process. Suspect asthma exacerbation with contribution of obesity hypoventilation syndrome. We will observe the patient in telemetry for: Asthma exacerbation/ pickwickian synd/ACS HTN Pneumonia/PE Problem List: 1. Acute respiratory failure with hypoxia 2. Dyspnea 3. Hyperlipidemia 4. HTN (hypertension) 5. Asthma Plan: #Shortness of breath -possibly ashtma exacerebration -Rule out ACS with EKG and troponin 3 -pulm consult with Dr. Clfiford: Begin Symbicort 160/4.52 puffs twice a day with rinsing of the mouth, rapidly taper steroids, ensure Provera at home, PFTs and sleep testing as outpatient with Dr. Clifford. -[facility] nebs -Azithromycin 250mg now and continue for 3 more days 250 mg daily -echocardiogram CONCLUSIONS Normal left and right ventricular systolic function. Trace to small pericardial effusion. No significant valvular abnormalities noted. #Hypertension -Continue home medication of losartan, hydrochlorothiazide, methyldopa,verapamil -Watch for blood pressure #microcytic anemia, now 12.1, was 11.1 -Watch for bleeding #Disposition -Patient is stable for discharge. #Full code, DVT prophylaxis and mechanical & heparin, heart health diet, Tylenol for pain Consulting Request: Consulting Specialty: Pulmonary Disease Subjective Follow-up For: Dyspnea Complaints: patient states that she feels good and that her breathing is better she states that she had some indigestion and was given tums. Tele-Events Since Last Visit: Patient was in normal sinus rhythm from 80-123 however tachycardia to 160 when she uses the bathroom. Subjective: Patient states that she feels good, has a little bit indigestion, some bilateral calf pain that has subsided for now Review of Systems Constitutional: Reports: no symptoms. Respiratory: Reports: short of breath. Denies: cough. Objective Last 24 Hrs of Vital Signs/I&O Vital Signs Date Time Temp Pulse Resp B/P B/P Pulse O2 O2 Flow FiO2 Mean Ox Delivery Rate 11/07 1000 75 130/60 11/07 1000 75 130/60 11/07 0708 98.3 75 18 130/60 95 / 2311 98.9 103 18 116/60 93 Room Air 11/06 1930 94 Room Air 11/06 1501 99.2 108 18 150/70 96 Room Air 11/06 1450 Room Air 11/06 1449 97 Room Air Intake & Output 11/07 1600 11/07 0800 11/07 0000 Intake Total 120 770 Output Total Balance 120 770 Intake, IV 20 Intake, Oral 120 750 Patient 315 lb Weight Physical Exam General Appearance: Alert, Oriented X3, Cooperative, No Acute Distress Skin: No Rashes, No Breakdown, No Significant Lesion Skin Temp/Moisture Exam: Warm/Dry Cardiovascular: Regular Rate, Normal S1, Normal S2, No Murmurs, Gallops Lungs: Clear to Auscultation, Normal Air Movement Abdomen: Normal Bowel Sounds, Soft, No Tenderness Extremities: No Edema, Normal Pulses, No Tenderness/Swelling Current Medications: Current Medications Sig/[place] Start time Last Medication Dose Route Stop Time Status Admin Acetaminophen 650 MG Q6P PRN 11/05 2230 AC PO Albuterol Sulfate 3 ML BID 11/06 2200 AC 11/06 INH 1930 Amlodipine Besylate 5 MG DAILY 11/06 1000 AC 11/07 PO 1000 Atorvastatin Calcium 10 MG 1700 11/06 1700 AC 11/06 PO 1617 Azithromycin 250 MG DAILY 11/06 1000 AC 11/07 PO 11/09 1001 1000 Calcium Carbonate 500 MG ONCE ONE 11/07 0630 DC 11/07 PO 11/07 0631 0634 Enoxaparin Sodium 40 MG DAILY 11/06 1000 AC 11/07 SC 1000 Hydrochlorothiazide 25 MG DAILY 11/06 1000 AC 11/07 PO 1000 Losartan Potassium 100 MG DAILY 11/06 1000 AC 11/07 PO 1000 Methyldopa 500 MG BID 11/05 2327 AC 11/07 PO 1000 Methylprednisolone 40 MG BID 11/06 1000 AC 11/07 IV 1000 Montelukast Sodium 10 MG QPM 11/06 2199 AC 11/06 PO 2054 Verapamil HCl 360 MG AT BEDTIME 11/07 2199 AC PO Verapamil HCl 360 MG DAILY 11/06 1000 DC PO SIMÓN DESOUZA MD 11/07/16 1931: Attending MD Review Statement Attending Statement Attending MD Statement: examined this patient, discuss w/resident/PA/THREAD SEPARATOR, agreed w/resident/PA/THREAD SEPARATOR, reviewed EMR data (avail), discussed w/nursing, discussed w/ case mgmt, amended to note Attending Assessment/Plan: The patient was seen and discussed with house staff. Appreciate pulmonary follow -up. OK to discharge to home today with pulmonary follow-up/sleep study, etc. Adding Symbicort MDI to regimen.
== END 2016-11-07 13:00 ==
LOC: ERH 13:28 → ERHI 21:58 → 1NO 21:58 → ENRESERV 11-06 09:30 → 1NO 11-06 10:40 → ENPENDDIS 11-07 10:47 → 1NO 11-07 13:00
PROVIDERS: Emergency Medicine; Internal Medicine; ADMIT Internal Medicine
DX: J45.909 Unspecified asthma, uncomplicated (principal); J96.01 Acute respiratory failure with hypoxia; I10 Essential (primary) hypertension; E66.01 Morbid (severe) obesity due to excess calories; E78.5 Hyperlipidemia, unspecified; D64.9 Anemia, unspecified
CPT/HCPCS: 1263; 1395; 82436; 93005; 93010; 93306; 96372; 96374; 96376; G0378; J0456; J1650; J2920; J2930; J3490